=== PATIENT | female | born 1975 | race Caucasian/White ===

== ENCOUNTER 2024-11-14 20:15 | Emergency (ER) | payer MEDICAID, SELFPAY ==
[2024-11-14 20:18] VITALS: BP 141/63; PULSE 113; RESP 18; TEMP 37.1; O2SAT 98; BMI 31.1
[2024-11-14 20:22] VITALS: BP 141/63; PULSE 115; RESP 18; TEMP 37.1; O2SAT 99
--- NOTE | 2024-11-14 20:57 | EDS_ITS ---
HPI History of Present Illness Chief Complaint: ETOH Intox Narrative Narrative: Patient is a 49-year-old female presenting to the emergency department for alcohol intoxication. Patient has a history of alcohol abuse. States that she drinks daily. States that today she was drinking at home. She reportedly texted her friend help. Significant other then went to the house and she was lying on the couch. He broke into the house and she woke up. He called EMS and when they arrived they gave her a liter of fluids. At that time she was reportedly very intoxicated. On arrival here patient states that she wants to leave. States that her significant other ordered her a cab to go home. She denies any pain. States that she drank too much today. Denies thoughts of wanting to harm herself. PFSH PFSH Allergy/AdvReac Type Severity Reaction Status Date / Time No Known Allergies Allergy Verified 11/14/24 20:21 Social History Smoking Status: Current some day smoker tobacco type: cigarettes ROS ROS ED Constitutional Constitutional ED: Denies chills or fever(s) Eyes Eyes: Denies change in vision Cardiovascular Cardiovascular: Denies chest pain, palpitations or racing heartbeat Respiratory/Chest Respiratory/Chest: Denies cough, dyspnea or dyspnea on exertion Gastrointestinal Gastrointestinal: Denies abdominal pain, diarrhea, nausea or vomiting Genitourinary Genitourinary ED: Denies dysuria or hematuria Musculoskeletal Musculoskeletal: Denies back pain or neck pain Neurologic Neurologic: Denies headache(s), paresthesias or weakness Psychiatric Psychiatric: Denies suicidal ideation EXAM Physical Exam Narrative Exam Narrative: Vital signs: Reviewed General: Alert and orientedx3. No acute distress HEENT: Head is normocephalic and atraumatic, sinuses nontender, pupils equal round and reactive. Nares are patent. Oropharynx and throat exams normal. Neck: Supple without lymphadenopathy nontender Cardiovascular: Regular rate and rhythm, no murmurs. No rubs or gallops. Normal S1 and S2 Respiratory: Clear to auscultation bilaterally. No wheezes, rales, rhonchi Abdominal: Soft and nontender. Normal bowel sounds. No guarding or rebound. Nonsurgical abdomen Extremities: No tenderness. No bruising. Normal range of motion. Normal se nsation. Skin: No rash or redness. Neurological: Cranial nerves II through XII are grossly intact. Normal strength and sensation. Normal cerebellar function The rest of the physical exam is unremarkable Const Vital Signs: 11/14/24 20:18 11/14/24 20:22 Temperature 98.8 F 98.8 F Temperature Source Oral Oral Pulse Rate 113 H 115 H Respiratory Rate 18 18 Blood Pressure 141/63 H 141/63 H Blood Pressure Mean 89 89 Blood Pressure Source Monitor Blood Pressure Position Semi-Fowlers Pulse Ox 98 99 Oxygen Delivery Method Room Air MDM MDM MDM Narrative Medical decision making narrative: Patient is a 49-year-old female presenting to the emergency department for alcohol intoxication. Patient was seen and examined. Vitals are stable. She is mildly tachycardic. Patient has no complaints. She states that she wants to go home. I recommended that she stay for evaluation and observation. She declines. She is alert and oriented x 3. She has capacity to make her own medical decisions. Patient discharged from the Emergency Department. I do not feel that the patient's evaluation reveals any acute reason for admission at this time. I instructed them to either follow-up with their primary care physician or promptly return to the Emergency Department for reevaluation should symptoms worsen or new symptoms develop. I explained what symptoms would indicate the need to return to the emergency department. Shared decision making was used. The patient voiced understanding of the treatment plan and is agreeable with it. Clinical impression: 1. alcohol abuse Discharge Plan Triage Chief Complaint: ETOH Intox ED Provider: Christie Esteban Dx/Rx/DC Orders Instructions: ED Alcohol Abuse Print Language: Upper Sorbian
== END 2024-11-14 21:07 | disposition left against medical advice (07) ==
LOC: ED 21:02
PROVIDERS: Emergency Provider Student in an Organized Health Care Education/Training Program; Visit Provider Student in an Organized Health Care Education/Training Program
DX: F10.129 Alcohol abuse with intoxication, unspecified (principal); F17.210 Nicotine dependence, cigarettes, uncomplicated
CPT/HCPCS: 99284